=== PATIENT | male | born 1990 | race Caucasian/White ===

== ENCOUNTER 2019-07-29 19:17 | Emergency (ER) | payer BC ==
[2019-07-29] MEDS ORDERED: Morphine 4 MG/ML VIAL ONE (19:51)
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
== END 2019-07-29 20:27 | disposition home or self-care (01) ==
LOC: SCSER 19:17
DX: S52.602A Unspecified fracture of lower end of left ulna, initial encounter for closed fracture (principal); V49.40XA Driver injured in collision with unspecified motor vehicles in traffic accident, initial encounter
CPT/HCPCS: 29125; 96372; J2270